=== PATIENT | female | born 1990 | race African-American/Black ===

== ENCOUNTER 2016-12-14 14:32 | Emergency (ER) | payer MEDICARE, OTHER ==
--- NOTE | ~2016-12-14 | CR141 ---
[facility] A Service of [facility] & [facility] RADIOLOGY TEXT RESULTS PATIENT: MARIE MONROY LOCATION: CFTX : [birth year] UNIT #: [id number] AGE: [address]: Shanda Rodriguez APRN SEX: F ORDER DR: [id number] [facility] [place] [address] [place], [place] [address] [id number] E MR#: [id number] Acc #: [id number] NAME: MARIE MONROY : 1990 SEX: F STUDY DATE/TIME: 12/14/2016 16:08 UNIT: [facility] ROOM: STUDY DESCRIPTION: CR Hand Min 3 Views Lt Attending Physician: Shanda Rodriguez A.P.R.N. Ordering Physician: Ed Teodoro White M.D. MEDICAL IMAGING REPORT This report is preliminary unless electronic signature is present EXAM Left hand 12/14 HISTORY Hand pain after falling down stairs today FINDINGS AP, lateral, and oblique projections of the hand show good mineralization with normal carpal, metacarpal, and phalangeal anatomy without indication of fracture, dislocation, or soft tissue radiopaque foreign body. IMPRESSION Normal hand. Dictated by... Agusto Roberts Jr., M.D. THIS IS AN ELECTRONICALLY VERIFIED REPORT Agusto Roberts Jr., M.D. at 12/14/2016 10:22 PM RLK/sylvester TD: 12/14/2016 18:44 JOB #: [id number] MEDICAL IMAGING REPORT Page 1 of 1 COPY
--- NOTE | ~2016-12-14 | CR252 ---
[facility] A Service of [facility] & [facility] RADIOLOGY TEXT RESULTS PATIENT: MARIE MONROY LOCATION: CFTX : [birth year] UNIT #: [id number] AGE: [address]: Shanda Rodriguez APRN SEX: F ORDER DR: [id number] [facility] [address] [place], [place] [address] [id number] E MR#: [id number] Acc #: [id number] NAME: MARIE MONROY : 1990 SEX: F STUDY DATE/TIME: 12/14/2016 16:06 UNIT: [facility] ROOM: STUDY DESCRIPTION: CR Tibia and Fibula 2 Views Lt Attending Physician: Shanda Rodriguez A.P.R.N. Ordering Physician: [facility] [employer] MEDICAL IMAGING REPORT This report is preliminary unless electronic signature is present EXAM Left tib-fib 12/14 HISTORY Left lower leg pain after fall down stairs today. FINDINGS There is no evidence of fracture, dislocation, or radiopaque foreign body. IMPRESSION Normal tibia and fibula. Dictated by... Agusto Roberts Jr., M.D. THIS IS AN ELECTRONICALLY VERIFIED REPORT Agusto Roberts Jr., M.D. at 12/14/2016 10:22 PM SCOTT/elicia TD: 12/14/2016 18:46 JOB #: [id number] MEDICAL IMAGING REPORT Page 1 of 1 COPY
--- NOTE | ~2016-12-14 | CR126 ---
[facility] A Service of [facility] RADIOLOGY TEXT RESULTS PATIENT: MARIE MONROY LOCATION: CFTX : [birth year] UNIT #: [id number] AGE: [address]: Shanda Rodriguez APRN SEX: F ORDER DR: [id number] [facility] [address]. [place], [place] [address] [id number] E MR#: [id number] Acc #: [id number] NAME: MARIE MONROY : 1990 SEX: F STUDY DATE/TIME: 12/14/2016 16:04 UNIT: [facility] ROOM: STUDY DESCRIPTION: CR Foot Complete Min 3 View Lt Attending Physician: Shanda Rodriguez A.P.R.N. Ordering Physician: Adolfo White M.D. MEDICAL IMAGING REPORT This report is preliminary unless electronic signature is present EXAM Left foot 12/14 INDICATIONS Foot pain after falling down stairs today. FINDINGS The tarsal, metatarsal, and phalangeal elements are all anatomically normal in position and alignment. There are no articular defects. No fractures or radiopaque foreign bodies in the soft tissues are apparent. IMPRESSION Normal foot. Dictated by... Agusto Roberts Jr., M.D. THIS IS AN ELECTRONICALLY VERIFIED REPORT Agusto Roberts Jr., M.D. at 12/14/2016 10:22 PM SCOTT/marquis TD: 12/14/2016 18:52 JOB #: [id number] MEDICAL IMAGING REPORT Page 1 of 1 COPY
[~2016-12-14 14:32] MED LIST: ABILIFY PO; CYMBALTA; FLEXERIL PO; KETOPROFEN PO; KLONOPIN; LEXAPRO PO; PRENATAL VITAMI1 TA3 PO; SEROQUEL
== END 2016-12-14 17:00 | disposition home or self-care (01) ==
LOC: CFTX 14:32 → CED 14:32 → CFTX 16:24
DX: S90.32XA Contusion of left foot, initial encounter (principal); S60.222A Contusion of left hand, initial encounter; S80.12XA Contusion of left lower leg, initial encounter; W01.0XXA Fall on same level from slipping, tripping and stumbling without subsequent striking against object, initial encounter; Y92.9 Unspecified place or not applicable; J45.909 Unspecified asthma, uncomplicated; Z88.1 Allergy status to other antibiotic agents
CPT/HCPCS: 29540; 73130; 73590; 73630; 99284